=== PATIENT | female | born 1955 | race Caucasian/White ===

== ENCOUNTER 2019-01-06 14:14 | Emergency (ER) | payer OTHER ==
[~2019-01-06] VITALS: Ht 160 cm; Wt 70.3 kg
[2019-01-06] MEDS ORDERED: ENALAPRIL MALEA20 MG (14:22)
[2019-01-06] MEDS ORDERED: METOPROLOL SUCC25 MG (14:23)
== END 2019-01-06 21:43 | disposition home or self-care (01) ==
LOC: ER 14:14
DX: K29.60 Other gastritis without bleeding (principal); K80.80 Other cholelithiasis without obstruction; R10.11 Right upper quadrant pain